=== PATIENT | female | born 1960 | race Caucasian/White ===

== ENCOUNTER 2017-11-05 17:10 | Observation (INO) | payer OTHER ==
[~2017-11-05] VITALS: Ht 154.9 cm; Wt 41.9 kg
[~2017-11-05 17:10] MED LIST: no home medications
--- NOTE | 2017-11-05 17:25 | PHYS DOC ---
Past History Past Medical History: Migraines, Schizophrenia, Other Past Surgical History: No Surgical History Smoking: Non-smoker Alcohol Use: None Drug Use: None Adult General Chief Complaint Chief Complaint: ALTERED MENTAL STATUS HPI HPI She is a pleasant 57-year-old female with a questionable history of schizophrenia who was found wandering downtown today was brought in for an evaluation. She was seen at [facility] earlier this week for a "" mental breakdown according to EMS today she presents because she is hearing voices. She says his voice is been bothering her for more than a year although while she 's been complaining of a headache described as lightening and sharp like behind the right eye with radiation to the ear and scalp. It is intermittent and daily with progression. It is not worst of life or sudden onset in nature is severe and debilitating. Patient is under the care of Dr. Thomas and Dr. Peguero neurology in an attempt to discover a neurologic cause for her symptoms. Patient complains primary of intermittent headaches as described above with no radiation to the back, no photophobia, but she does have some scintillating scotomata and other visual changes. Patient denies any fevers, chills, night sweats, weight loss or recent cough. Patient denies any direct trauma to her head or neck. Patient is not taking any medication to treat her symptoms. Although she has not employed she is living at home with her mother she is clean she does eat regularly. She denies any medications, denies any drug use, denies any alcohol consumption. She is on no medications for psychiatric illnesses. My differential for visual hallucinations includes but is not limited to retinal pathology, vision loss, migraine headache, seizure disorder, dementia, alcohol, alcohol withdrawal, medication withdrawal, narcolepsy, psychiatric illness, metabolic encephalopathy, hypothyroidism, renal failure, systemic infection, central nervous system ischemia, Review of Systems Review of Systems Constitutional: Denies fever or chills [] Eyes: Denies change in visual acuity, redness, or eye pain [] HENT: Denies nasal congestion or sore throat [] Respiratory: Denies cough or shortness of breath [] Cardiovascular: No additional information not addressed in HPI [] GI: Denies abdominal pain, nausea, vomiting, bloody stools or diarrhea [] : Denies dysuria or hematuria she did describe some urinary incontinence of unclear etiology Musculoskeletal: Denies back pain or joint pain [] Integument: Denies rash or skin lesions [] Neurologic: Does complain of a headache not worsened by stat sudden onset this no focal weakness sensory changes or associated loss of vision. She does have some scintillating scotomata and lancing pains over the side of the skull on the right. These are not new not changed hallucinations where she has multiple voices although there are not command hallucinations. She has no suicidal homicidal ideations she does not recognize the voices. Endocrine: Denies polyuria or polydipsia [] All other systems were reviewed and found to be within normal limits, except as documented in this note. Family History Family History Non-contributory Current Medications Current Medications See Nursing for home meds. Allergies Allergies Allergies Coded Allergies Type Severity Reaction Last Updated Verified penicillin Allergy Intermediate Rash 07/14/15 Yes Physical Exam Physical Exam Constitutional: Well developed, well nourished, no acute distress, non-toxic appearance. []He is clean she is well-nourished HENT: Normocephalic, atraumatic, bilateral external ears normal, oropharynx moist, no oral exudates, nose normal. [Patient has no pain pain over the temporal arteries bilaterally there is no palpable cords over the temples.] Eyes: PERRLA, EOMI, conjunctiva normal, no discharge. [] Neck: Normal range of motion, no tenderness, supple, no stridor. [] Cardiovascular:Heart rate regular rhythm, no murmur [] Lungs & Thorax: Bilateral breath sounds clear to auscultation [] Abdomen: Bowel sounds normal, soft, no tenderness, no masses, no pulsatile masses. [] Skin: Warm, dry, no erythema, no rash. [] Back: No tenderness, no CVA tenderness. [] Extremities: No tenderness, no cyanosis, no clubbing, ROM intact, no edema. [] Neurologic: Alert and oriented X 2, normal motor function, normal sensory function, no focal deficits noted. She seems lucid but she has difficulty focusing on tasks. There is no perceived sign that she is noticing that the voices at the time. [] Psychologic: She is somewhat confused but her judgment seems intact she admits that she needs help for this increased confusion. Today she lost and knew she was lost and EMS and local police at help her. EKG EKG [EKG at 0728 the platelet by me showed normal sinus rhythm at rate of 68, Q wave in V1 and V2 and V3, occasional PVC,unchanged from last night] Radiology/Procedures Radiology/Procedures [] Impressions: 1. Mental Status Change 2. Acute Exacerbation of Schizophrenia 3. Elevated Trop. Course & Med Decision Making Course & Med Decision Making Pertinent Labs and Imaging studies reviewed. (See chart for details) []At this point we will determine if there is not an organic cause to this patient to mental status changes, My differential for visual hallucinations includes but is not limited to retinal pathology, vision loss, migraine headache , seizure disorder, dementia, alcohol, alcohol withdrawal, medication withdrawal , narcolepsy, psychiatric illness, metabolic encephalopathy, hypothyroidism, renal failure, systemic infection, central nervous system ischemia, considered upon arrival. Patient is given a clean place to lay down some food. We are waiting for laboratory and CT scan be completed. Patient did mention something during her review of systems that she was having some incontinence at times of unclear etiology she was not driving stress incontinence and it was not associated with back pain or numbness in her lower legs. She denies any UTI symptoms. 2000 [facility]rs. [facility]- want pt. to have Telepsych eval before consideration for [facility] unit. Telepsych advised to have pt. admitted for psych eval and tx. [facility] advised she was not confused enough to go to [facility] unit, but does recommend she be admitted to a psych. hosital. [facility] advised no beds available surrounding hospital - possible bed opening in AM Plan start Geodon, will have pt re-evaluated in AM . and possible transfer to psych unit if one becomes available. 0800: Patient care transferred to ks by Dr. Hodge at 0600. Patient was sleeping without any problem and order for repeat Geodon at 8 AM was cancelled. Patient answering the question appropriately. Patient had elevation of troponin at arrival to ER last night with repeat point of care troponin that was 0.00. I ordered another troponin that reported 0.87. Patient denies chest pain at this time but stated age time she gets anxious she gets chest pain and the last chest pain was yesterday. Patient denies history of hypertension and dyslipidemia and previous cardiac event and family history of coronary artery disease. Patient smokes cigarettes. Plan to admit patient to hospitalist. Dr. Noel consulted at 0748 and accepted admission for telemetry observation. Ann Robison on-call customer contact specialist consulted at [phone]. Dragon Disclaimer Dragon Disclaimer This electronic medical record was generated, in whole or in part, using a voice recognition dictation system. Departure Departure: Impression: Primary Impression: Elevated troponin I level Additional Impression: Acute psychosis Disposition: 09 ADMITTED INPATIENT Admitting Physician: Sheri Noel Condition: IMPROVED Referrals: JESSE LARIOS APRN (PCP) Problem Qualifiers ROBERTA CHOUDHURY MD Nov 05, 2017 17:25 MARITO HODGE MD Nov 05, 2017 18:11 ANN JACKSON MD Nov 06, 2017 07:37
--- NOTE | 2017-11-05 17:40 | RAD ---
CT Head W/O Contrast: History: Altered Mental Status Comparison: none Axial images were obtained without contrast. The motley and white matter appears normal and symmetrical for the patients age. There is no mass effect, extraaxial fluid collections or hydrocephalus. There is no gross bleed. There is no focal loss of motley-white matter distinction to suggest acute ischemia, i.e. stroke. Impression: No acute findings. RS Compliance Statement: One or more of the following individualized dose reduction techniques were utilized for this examination: 1. Automated exposure control 2. Adjustment of the mA and/or kV according to patient size 3. Use of iterative reconstruction technique Electronically signed by: Viral Blanco III, MD (11/05/2017 5:37 PM) [facility]
--- NOTE | 2017-11-05 18:07 | EKG ---
[address] [address] Test Date: 2017-11-05 Test Time: 17:34:06 Pat Name: TATO WYNN Department: Room: Gender: F Montessori Toddler Teacher: MAIRA : 1960 Requested By: ROBERTA CHOUDHURY Order Number: [id number] Reading MD: Joshua Robison MD Measurements Intervals [place] Rate: 62 P: 66 [place]: 156 QRS: 55 QRSD: 102 T: 52 QT: 374 QTc: 382 Interpretive Statements SINUS RHYTHM SUGGESTIVE OF ANTEROSEPTAL INFARCT Electronically Signed On 11-12-2017 14:09:24 RESEARCH PHYSICIAN by Joshua Robison MD
[2017-11-05 18:09] LABS: BASO # 0.1 x10^3/uL (0.0-0.2); BASO % 1 % (0-3); EOS % 0 % (0-3); HEMATOCRIT 38.3 % (36.0-47.0); HEMOGLOBIN 13.1 g/dL (12.0-15.5); LYMPH # 2.1 x10^3/uL (1.0-4.8); LYMPH % 24 % (24-48); MEAN CORPUSCULAR HEMOGLOBIN 30 pg (25-35); MEAN CORPUSCULAR HGB CONC 34 g/dL (31-37); MEAN CORPUSCULAR VOLUME 87 fL (79-100); MONO # 0.7 x10^3/uL (0.0-1.1); MONO % 8 % (0-9); NEUT # 5.8 x10^3uL (1.8-7.7); NEUT % 67 % (31-73); PLATELET COUNT 452 x10^3/uL (140-400); RED BLOOD COUNT 4.39 x10^6/uL (3.50-5.40); RED CELL DISTRIBUTION WIDTH 13.4 % (11.5-14.5); WHITE BLOOD COUNT 8.6 x10^3/uL (4.0-11.0)
[2017-11-05 18:25] LABS: CALCIUM 8.7 mg/dL (8.5-10.1); CREATININE 0.6 mg/dL (0.6-1.0); GFR 103.8; MAGNESIUM 2.2 mg/dL (1.8-2.4); POTASSIUM 3.8 mmol/L (3.5-5.1)
[2017-11-05] MEDS ORDERED: ASPIRIN 325 MG TABLET PO ONE (18:45)
[2017-11-05 19:41] LABS: BARBITURATES NEG (NEG); BENZODIAZEPINES NEG (NEG); CANNABINOIDS NEG (NEG); COCAINE NEG (NEG); METHADONE NEG (NEG); OPIATES NEG (NEG); PHENCYCLIDINE NEG (NEG)
[2017-11-05 19:42] LABS: AMPHETAMINE/METHAMPHETAMINE NEG (NEG)
[2017-11-05 20:01] LABS: BILIRUBIN,URINE NEG (NEG); CLARITY,URINE HAZY; COLOR,URINE YELLOW; GLUCOSE,URINE NEG (NEG)
[2017-11-05 20:02] LABS: AMORPHOUS SEDIMENT,UR PRESENT /HPF; BACTERIA,URINE 0 /HPF (0-FEW); NITRITE,URINE NEG (NEG); SQUAMOUS EPITHELIAL CELL,UR MANY /LPF; UROBILINOGEN,URINE 0.2 mg/dL (0.2 mg/dL)
[2017-11-05] MEDS ORDERED: diphenhydrAMINE HCL 25 MG CAPSULE PO ONE (21:15)
[2017-11-05] MEDS ORDERED: ZIPRASIDONE 20 MG CAPSULE. PO ONE (21:15)
[2017-11-05] MEDS ORDERED: LORazepam 1 MG TABLET PO ONE (21:15)
--- NOTE | 2017-11-05 21:47 | EKG ---
[address] [address] Test Date: 2017-11-05 Test Time: 19:18:08 Pat Name: TATO WYNN Department: Room: Gender: F Agriculture Technician: MAIRA : 1960 Requested By: MARITO LOPEZ Order Number: [id number] Reading MD: Joshua Robison MD Measurements Intervals [place] Rate: 64 P: 56 [place]: 148 QRS: 59 QRSD: 102 T: 58 QT: 398 QTc: 415 Interpretive Statements SINUS RHYTHM POSSIBLE PRIOR ANTEROSEPTAL INFARCT Electronically Signed On 11-12-2017 14:10:27 THERMAL CUTTER HAND by Joshua Robison MD
[2017-11-06] MEDS: ZIPRASIDONE 20 MG CAPSULE. PO SCH ×2 (08:00→12:32)
--- NOTE | 2017-11-06 08:14 | RAD ---
Indication: Smoker, mental status change. Technique: AP upright portable chest radiograph was obtained. No comparison is available. Findings: The lungs are clear. The heart is not enlarged and there is no heart failure. There is no pleural effusion. There is mild dextrocurvature. Impression: No acute thoracic findings.
--- NOTE | 2017-11-06 08:17 | EKG ---
[address] [address] Test Date: 2017-11-06 Test Time: 07:28:45 Pat Name: TATO WYNN Department: Room: Gender: F Director Of Community Education: MAIRA : 1960 Requested By: SON JACKSON Order Number: [id number] Reading MD: Joshua Robison MD Measurements Intervals [place] Rate: 68 P: 63 [place]: 150 QRS: 64 QRSD: 92 T: 64 QT: 404 QTc: 434 Interpretive Statements SINUS RHYTHM VENTRICULAR PREMATURE COMPLEX(ES) POSSIBLE PRIOR ANTEROSEPTAL INFARCT Electronically Signed On 11-12-2017 14:13:48 LIVESTOCK INSPECTOR by Joshua Robison MD
[2017-11-06] MEDS ORDERED: ASPIRIN 81 MG TAB.CHEW PO ONE (08:30)
--- NOTE | 2017-11-06 10:19 | PDOC2 ---
CONSULT Date of Admission DATE: 11/06/17 TIME: : Reason for Consult: elevated trop Problem List Problems Medical Problems: (1) Acute psychosis Status: Acute (2) Elevated troponin I level Status: Acute History of Present Illness Ms Cummings is a 57 year old female who presented to the ED after being found wandering around [facility]. She was apparently hearing voices and unkempt so brought for evaluation for psychiatric placement. On routine evaluation she was noted to have a minimally elevated troponin so consult was called. She is currently a very poor historian and having difficulty concentrating. She is actively "hearing voices". She initially denies any chest discomfort or dyspnea. She then reports intermittent sharp shooting chest pain worse with deep inspiration but is unable to tell me when she experienced this last. She spent most of the encounter relating issues with her husbands MI involvement, prison exposing her son to porn and a 20 year group home sentence for meth distribution. She denies any drug or alcohol use for 2 years. She also reportedly attends AA meetings. She is most concerned with what she describes as "degenerative brain disease" and is requesting a brain MRI. Past Medical History review of available medical records indicate a history of tension type headaches and several years of mental status issues without a concrete diagnosis. Past Surgical History unknown Family History medical records indicate history of cancer Social History 1ppd smoker, history of methamphetamine use, ETOH use (now in AA) and she reports she "dabbled with everything" but denies use of anything in the last 2 years. Current Medications Current Medications Aspirin (Avni Aspirin) 325 mg 1X ONCE PO Last administered on 11/05/17 19: 05; Start 11/05/17 at 18:45; Stop 11/05/17 at 18:47; Status DC Lorazepam (Ativan) 1 mg 1X ONCE PO Last administered on 11/05/17 21:50; Start 11/05/17 at 21:15; Stop 11/05/17 at 21:16; Status DC Ziprasidone (Geodon) 20 mg 1X ONCE PO Last administered on 11/05/17 21:50; Start 11/05/17 at 21:15; Stop 11/05/17 at 21:16; Status DC Diphenhydramine HCl (Benadryl) 25 mg 1X ONCE PO Last administered on 21:50; Start 11/05/17 at 21:15; Stop 11/05/17 at 21:16; Status DC Ziprasidone (Geodon) 20 mg BID PO ; Start 11/06/17 at 00:00 Aspirin (Children'S Aspirin) 324 mg 1X ONCE PO Last administered on t 08:30; Start 11/06/17 at 08:30; Stop 11/06/17 at 08:31; Status DC Active Scripts Active Reported No Known Medications Prior To Admisstion (Info) Each 1 Each MC [no home medications] Allergies: Coded Allergies: penicillin (Verified Allergy, Intermediate, Rash, 07/14/15) Review of System as per HPI General: Alert, Oriented X3, Cooperative, No acute distress Lungs: Clear to auscultation Heart: Regular rate, Normal S1, Normal S2 Abdomen: Normal bowel sounds, Soft Extremities: No cyanosis, No edema, Normal pulses Neuro: Strength at 5/5 X4 ext Psych/Mental Status: Other (A/Ox3, rapid speech, anxious, intermittenlty innattentive and reports hearing voices, intermittently tearful) VITALS Vital Signs Date Time Temp Pulse Resp B/P (MAP) Pulse Ox O2 Delivery O2 Flow Rate FiO2 11/06/17 09:03 63 18 99/66 (77) 100 Room Air 11/05/17 17:10 98.1 Labs Laboratory Tests Test 11/05/17 17:45 11/05/17 19:07 11/05/17 19:11 11/05/17 19:47 White Blood Count 8.6 x10^3/uL (4.0-11.0) Red Blood Count 4.39 x10^6/uL (3.50-5.40) Hemoglobin 13.1 g/dL (12.0-15.5) Hematocrit 38.3 % (36.0-47.0) Mean Corpuscular Volume 87 fL (79-100) Mean Corpuscular Hemoglobin 30 pg (25-35) Mean Corpuscular Hemoglobin Concent 34 g/dL (31-37) Red Cell Distribution Width 13.4 % (11.5-14.5) Platelet Count 452 x10^3/uL (140-400) Neutrophils (%) (Auto) 67 % (31-73) Lymphocytes (%) (Auto) 24 % (24-48) Monocytes (%) (Auto) 8 % (0-9) Eosinophils (%) (Auto) 0 % (0-3) Basophils (%) (Auto) 1 % (0-3) Neutrophils # (Auto) 5.8 x10^3uL (1.8-7.7) Lymphocytes # (Auto) 2.1 x10^3/uL (1.0-4.8) Monocytes # (Auto) 0.7 x10^3/uL (0.0-1.1) Eosinophils # (Auto) 0.0 x10^3/uL (0.0-0.7) Basophils # (Auto) 0.1 x10^3/uL (0.0-0.2) Sodium Level 142 mmol/L (136-145) Potassium Level 3.8 mmol/L (3.5-5.1) Chloride Level 104 mmol/L (98-107) Carbon Dioxide Level 28 mmol/L (21-32) Anion Gap 10 (6-14) Blood Urea Nitrogen 9 mg/dL (7-20) Creatinine 0.6 mg/dL (0.6-1.0) Estimated GFR (Cockcroft-Gault) 103.8 Glucose Level 86 mg/dL (70-99) Calcium Level 8.7 mg/dL (8.5-10.1) Magnesium Level 2.2 mg/dL (1.8-2.4) Ammonia 18 mcmol/L (11-34) Creatine Kinase 156 U/L (26-192) Creatine Kinase MB (Mass) 4.3 ng/mL (0.0-3.6) Creatine Kinase MB Relative Index 2.8 % (0-4) Troponin I Quantitative 0.081 ng/mL (0-0.055) DP-Imr-Q-Type Natriuretic Peptide 83 pg/mL (0-124) Urine Opiates Screen Neg (NEG) Urine Methadone Screen Neg (NEG) Urine Barbiturates Neg (NEG) Urine Phencyclidine Screen Neg (NEG) Urine Amphetamine/Methamphetamine Neg (NEG) Urine Benzodiazepines Screen Neg (NEG) Urine Cocaine Screen Neg (NEG) Urine Cannabinoids Screen Neg (NEG) Urine Ethyl Alcohol Neg (NEG) Urine Collection Type Unknown Urine Color Yellow Urine Clarity Hazy Urine pH 6.5 Urine Specific [place] 1.020 Urine Protein Neg (NEG-TRACE) Urine Glucose (UA) Neg mg/dL (NEG) Urine Ketones (Stick) Neg mg/dL (NEG) Urine Blood Neg (NEG) Urine Nitrite Neg (NEG) Urine Bilirubin Neg (NEG) Urine Urobilinogen Dipstick 0.2 mg/dL (0.2 mg/dL) Urine Leukocyte Esterase Neg (NEG) Urine RBC 1-2 /HPF (0-2) Urine WBC 1-4 /HPF (0-4) Urine Squamous Epithelial Cells Many /LPF Urine Amorphous Sediment Present /HPF Urine Bacteria 0 /HPF (0-FEW) Bedside Troponin I 0.00 ng/ml (<0.08) Test 11/06/17 06:37 Troponin I Quantitative 0.087 ng/mL (0-0.055) Images CXR- Impression: No acute thoracic findings. Assessment/Plan 1. elevated trop - minimal elevation without clear symptoms, no acute changes on EKG. Suggest echo and will start aspirin. check lipids. No beta blockers due to low blood pressure. She is not currently a good candidate for invasive ischemic evaluation due to her acute psych issues. Consider evaluation outpatient once psychiatrically stable. 2. acute psychiatric illness - psych consult / placement. Problems: SHANIA SAUCEDO TIRE ADJUSTER Nov 06, 2017 10:19
[2017-11-06 14:55] VITALS: BP 122/76
--- NOTE | 2017-11-06 15:43 | HP ---
ADMIT DATE: 11/06/2017 HISTORY OF PRESENT ILLNESS: This is a 57-year-old female who was in [facility] yesterday and evidently was staring off into space and not acting right and was brought by the police to the Emergency Room. She had been seen at [facility] early this week for a mental breakdown, but according to her, she is hearing voices, which apparently have been bothering her for more than a year. The patient herself, she states she is seeing flashing lights. She is having problems with her memory and she is under extreme stress. PAST MEDICAL HISTORY: Possibly Schizophrenia. She states she has Asperger'. She is under the care of Dr. Thomas for unknown exactly what. She states she does have headaches. She has posttraumatic stress. MEDICATIONS: None. SOCIAL HISTORY: She lives in an apartment. She does not work. She does smoke a pack per day and has smoked since she was in the sixth grade. The patient just drank on and off since high school, has been attending [employer]. The patient states that her probation has been revoked and she is facing a 20-year sentence, would not give me any further information. 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 She states she worked for the [employer] for 20 years. She did go to college at [employer]. REVIEW OF SYSTEMS: Psych: extreme memory loss, crackling in her brain, sparkles and splashes in her brain , staring off into space, shooting pain, silver flames "stroke like symptoms", easily falling asleep, peeing on herself, heavy breathing, anxiety, traumatic stress. Denies chest pain. FAMILY HISTORY: Positive for stroke and seizures in her father. OBJECTIVE: VITAL SIGNS: Blood pressure 99/66, pulse 63, respirations 18, pulse ox 100% on room air. Height 61 inches, weight 92.31 pounds. GENERAL: A very thin, nervous, 57-year-old, in no acute distress. The patient is well kept. She is well-groomed, albeit very thin habitus. HEENT: Her pupils were equal, round, and reactive to light. Extraocular muscles were intact. Her nose was patent. Her throat was clear. NECK: Supple. LUNGS: Clear. CARDIOVASCULAR: Regular rhythm and rate. ABDOMEN: Soft, nontender. EXTREMITIES: Without edema. MUSCULOSKELETAL: Extreme thin habitus. NEUROLOGIC: Mental status: Flight of ideas, fairly good historian, extremely anxious. ASSESSMENT: 1. Possible psychotic break. 2. Asperger's. 3. Posttraumatic stress. 4. Extreme anxiety. 5. Social issues with the law. 6. Underweight for her height. 7. Tobacco use disorder. 8. Elevated troponin, seen by Cardiology. Troponin has stabilized and EKG is unremarkable. PLAN: Psych evaluation, so far we have not had any luck placing her in spite of Tele/Psych recommending inpatient, we will also get an echocardiogram and have Dr. Harrison see her as well. EZEKIEL LIU DO DR: TRACY/christina JOB#: [id number] / [id number]
--- NOTE | 2017-11-06 15:49 | CARD ---
APPROVED REPORT EXAM: Two-dimensional and M-mode echocardiogram with Doppler and color Doppler. Other Information Quality : ExcellentHR: 87bpm INDICATION Chest Pain 2D DIMENSIONS RVDd2.4 (2.9-3.5cm)Left Atrium(2D)2.8 (1.6-4.0cm) IVSd0.9 (0.7-1.1cm)Aortic Root(2D)2.4 (2.0-3.7cm) LVDd3.6 (3.9-5.9cm)LVOT Diameter1.9 (1.8-2.4cm) PWd0.9 (0.7-1.1cm)LVDs2.3 (2.5-4.0cm) FS (%) 36.6 %SV36.4 ml Mitral Valve MV E Lezrrvmn26.2cm/sMV DECEL [id number] MV A Ftlrmdur25.3cm/sE/A Ratio1.1 Pulmonary Valve PV Peak Wgwyzidi49.9cm/sPV Peak Grad.4mmHg Tricuspid Valve TR P. Uadsogir520bu/sTR Peak Gr.19mmHg Pulmonary Vein S1 Majdtnol67.7cm/sD2 Mglhjhhb56.2cm/s LEFT VENTRICLE The left ventricle is normal size. There is normal left ventricular wall thickness. The left ventricu lar systolic function is normal and the ejection fraction is within normal range. Left ventricular ej ection fraction is 55-60%. There is normal LV segmental wall motion. The left ventricular diastolic f unction and filling is normal for age. RIGHT VENTRICLE The right ventricle is normal size. The right ventricular systolic function is normal. ATRIA The left atrium size is normal. The right atrium size is normal. Interatrial septum is mobile. The in teratrial septum is intact with no evidence for an atrial septal defect or patent foramen ovale as no beverly on 2-D or Doppler imaging. AORTIC VALVE The aortic valve is normal in structure and function. Doppler and Color Flow revealed no significant aortic regurgitation. There is no significant aortic valvular stenosis. There is no aortic valvular v egetation. MITRAL VALVE The mitral valve is normal in structure and function. There is no evidence of mitral valve prolapse. There is no mitral valve stenosis. Doppler and Color-flow revealed trace mitral regurgitation. TRICUSPID VALVE The tricuspid valve is normal in structure and function. Doppler and Color Flow revealed trace tricus pid regurgitation. There is no tricuspid valve prolapse or vegetation. There is no tricuspid valve st enosis. PULMONIC VALVE Pulmonic valve was not visualized. Doppler and Color Flow revealed no pulmonic valvular regurgitation . There is no pulmonic valvular stenosis. GREAT VESSELS The aortic root is normal in size. PERICARDIAL EFFUSION There is no pleural effusion. There is no evidence of significant pericardial effusion. Critical Notification Critical Value: No <Conclusion> The left ventricle is normal size. The left ventricular systolic function is normal and the ejection fraction is within normal range. Left ventricular ejection fraction is 55-60%. There is no significant aortic valvular stenosis. Doppler and Color Flow revealed no significant aortic regurgitation. Doppler and Color-flow revealed trace mitral regurgitation. Doppler and Color Flow revealed trace tricuspid regurgitation. There is no evidence of significant pericardial effusion.
[2017-11-06] MEDS ORDERED: ZIPR20CA2 PO (18:15)
[2017-11-06] MEDS ORDERED: ASPI-630 PO (18:15)
[2017-11-07] MEDS ORDERED: ASPIRIN 81 MG TAB.CHEW PO SCH (08:00)
[2017-11-07] MEDS ORDERED: TRAZ-90 PO (08:39)
[2017-11-07] MEDS ORDERED: DIVA500T17 PO (08:39)
[2017-11-07] MEDS ORDERED: NICO1PAT21 TP (08:40)
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
== END 2017-11-06 17:38 ==
LOC: ER 17:10 → OBSVTOIN 11-06 08:00 → 1 SOUTH 11-06 08:00 → INTOOBSV 11-06 08:00 → OBSVTOIN 11-06 08:26 → INTOOBSV 11-06 08:26
PROVIDERS: ADMIT Family Medicine; ATTEND Family Medicine
DX: F84.5 Asperger's syndrome (principal); F43.10 Post-traumatic stress disorder, unspecified; F41.9 Anxiety disorder, unspecified; F20.9 Schizophrenia, unspecified; G43.909 Migraine, unspecified, not intractable, without status migrainosus; F23 Brief psychotic disorder; F17.210 Nicotine dependence, cigarettes, uncomplicated; R63.6 Underweight; Z82.3 Family history of stroke
CPT/HCPCS: 36415; 70450; 71010; 80048; 80307; 81001; 82140; 82553; 83735; 83880; 84443; 84484; 85025; 86593; 93005; 93306; 99285; G0378; G0379; Q0163; G0479

== ENCOUNTER 2017-11-06 17:47 | Inpatient (IN) | payer OTHER ==
[~2017-11-06] VITALS: Ht 154.9 cm; Wt 41.7 kg
[2017-11-06] MEDS ORDERED: ASPI-630 PO (18:15)
[2017-11-06] MEDS ORDERED: ZIPR20CA2 PO (18:15)
[2017-11-06] MEDS ORDERED: MAG HYDROX/AL HYDROX/SIMETH 30 ML ORAL.SUSP PO PRN (18:30)
[2017-11-06] MEDS ORDERED: ACETAMINOPHEN 325 MG TABLET PO PRN (18:30)
[2017-11-06] MEDS ORDERED: METHYL SALICYLATE/MENTHOL TOPICAL OINTMENT 29GM TUBE. TP PRN (18:30)
[2017-11-06] MEDS ORDERED: MAGNESIUM HYDROXIDE 2,400 MG/30 ML ORAL.SUSP. PO PRN (18:30)
[2017-11-06 18:33] VITALS: BP 126/79
[2017-11-06] MEDS ORDERED: NICOTINE 21MG PATCH. TD SCH (19:00)
[2017-11-06 19:51] LABS: BASO % 1 % (0-3); EOS # 0.1 x10^3/uL (0.0-0.7); EOS % 1 % (0-3); HEMATOCRIT 40.7 % (36.0-47.0); HEMOGLOBIN 13.9 g/dL (12.0-15.5); LYMPH # 2.5 x10^3/uL (1.0-4.8); LYMPH % 37 % (24-48); MEAN CORPUSCULAR HEMOGLOBIN 30 pg (25-35); MEAN CORPUSCULAR HGB CONC 34 g/dL (31-37); MEAN CORPUSCULAR VOLUME 88 fL (79-100); MONO # 0.6 x10^3/uL (0.0-1.1); MONO % 9 % (0-9); NEUT # 3.5 x10^3uL (1.8-7.7); NEUT % 53 % (31-73); PLATELET COUNT 478 x10^3/uL (140-400); RED BLOOD COUNT 4.63 x10^6/uL (3.50-5.40); RED CELL DISTRIBUTION WIDTH 13.9 % (11.5-14.5); WHITE BLOOD COUNT 6.7 x10^3/uL (4.0-11.0)
[2017-11-06 20:02] LABS: ALBUMIN 3.8 g/dL (3.4-5.0); ALBUMIN/GLOBULIN RATIO 1.1 (1.0-1.7); CALCIUM 8.6 mg/dL (8.5-10.1); GFR 57.6; MAGNESIUM 2.1 mg/dL (1.8-2.4); POTASSIUM 3.6 mmol/L (3.5-5.1); TOTAL BILIRUBIN 0.5 mg/dL (0.2-1.0); TOTAL PROTEIN 7.4 g/dL (6.4-8.2)
--- NOTE | 2017-11-06 20:10 | PDOC ---
Exam Note: Levi Note: Please also refer to the separate dictated note~for this date of service dictated separately.~Patient seen individually. Discussed the patient with Nursing staff reviewed the chart.~Reviewed interim history and current functioning. Reviewed vital signs,~Labs/ Radiology~and current medications noted below. Continue current treatment with the changes noted in the dictated addendum note Assessment: Vital Signs: Vital Signs Date Time Temp Pulse Resp B/P (MAP) Pulse Ox O2 Delivery O2 Flow Rate FiO2 11/06/17 18:33 97.7 88 20 126/79 (95) 99 Labs: Laboratory Tests Test 11/06/17 19:20 Sodium Level 141 mmol/L (136-145) Potassium Level 3.6 mmol/L (3.5-5.1) Chloride Level 101 mmol/L (98-107) Carbon Dioxide Level 27 mmol/L (21-32) Anion Gap 13 (6-14) Blood Urea Nitrogen 13 mg/dL (7-20) Creatinine 1.0 mg/dL (0.6-1.0) Estimated GFR (Cockcroft-Gault) 57.6 BUN/Creatinine Ratio 13 (6-20) Glucose Level 115 mg/dL (70-99) H Calcium Level 8.6 mg/dL (8.5-10.1) Magnesium Level 2.1 mg/dL (1.8-2.4) Total Bilirubin 0.5 mg/dL (0.2-1.0) Aspartate Amino Transferase (AST) 13 U/L (15-37) L Alanine Aminotransferase (ALT) 16 U/L (14-59) Alkaline Phosphatase 131 U/L (46-116) H Total Protein 7.4 g/dL (6.4-8.2) Albumin 3.8 g/dL (3.4-5.0) Albumin/Globulin Ratio 1.1 (1.0-1.7) Current Medications: Meds: Current Medications Aspirin (Children'S Aspirin) 81 mg DAILY PO ; Start 11/07/17 at 09:00 Ziprasidone (Geodon) 20 mg BID PO ; Start 11/06/17 at 21:00; Stop 11/06/17 at 21:00; Status DC Acetaminophen (Tylenol) 650 mg PRN Q6HRS PRN PO PAIN / TEMP; Start 11/06/17 at 18:30 Multi-Ingredient Ointment (Analgesic [place]) 1 stiven PRN QID PRN TP MUSCLE PAIN; Start 11/06/17 at 18:30 Al Hydroxide/Mg Hydroxide (Mylanta Plus Xs) 15 ml PRN AFTMEALHC PRN PO DYSPEPSIA; Start 11/06/17 at 18:30 Magnesium Hydroxide (Milk Of Magnesia) 2,400 mg PRN QHS PRN PO CONSTIPATION; Start 11/06/17 at 18:30 Nicotine (Nicoderm Cq 21mg) 1 patch DAILY TD ; Start 11/06/17 at 19:00 Ziprasidone (Geodon) 40 mg BID PO ; Start 11/06/17 at 21:00 Divalproex Sodium (Depakote Er) 500 mg QHS PO ; Start 11/06/17 at 21:00 Trazodone HCl (Desyrel) 100 mg QHS PO ; Start 11/06/17 at 21:00 Trazodone HCl (Desyrel) 100 mg PRN QHS PRN PO INSOMNIA; Start 11/06/17 at 21: 00 Active Scripts Active Reported Geodon (Ziprasidone Hcl) 20 Mg Capsule 20 Mg PO BID Aspirin 81 Mg Tab.chew 81 Mg PO DAILY No Known Medications Prior To Admisstion (Info) Each 1 Each MC [no home medications] I have reviewed the current psychotropics carefully including drug interactions. Risk benefit ratio favors no change other than as noted in my dictated progress note. Diagnosis: Problems: (1) Bipolar 1 disorder, mixed, moderate (2) Anxiety disorder (3) Delusional disorder DONNA BAZZI MD Nov 06, 2017 20:10
[2017-11-06] MEDS: ZIPRASIDONE 40 MG CAPSULE. PO SCH (20:43)
[2017-11-06] MEDS ORDERED: ZIPRASIDONE 20 MG CAPSULE. PO SCH (21:00)
[2017-11-06] MEDS ORDERED: DIVALPROEX ER 500 MG TAB.ER.24H PO SCH (21:00)
[2017-11-06] MEDS ORDERED: traZODone 100 MG TABLET. PO SCH (21:00)
[2017-11-06] MEDS ORDERED: traZODone 100 MG TABLET. PO PRN (21:00)
--- NOTE | 2017-11-06 21:59 | HP ---
ADMIT DATE: 11/06/2017 IDENTIFYING DATA: The patient is a 57-year-old female who initially presented to the [facility] Emergency Room from home as she will wandering around in [place] confused, hallucinating, hearing voices, feeling like he was "lightning bolts" in her head, which caused her to urinate on herself. She was found wandering downtown, extremely psychotic, agitated, manic, grandiose. She had failed outpatient psychiatric interventions resulting in this referral. CHIEF COMPLAINT: "I want my cookie, I want my cookie, I want my cookie." The patient is agitated, running up and down the hallway on the unit. Obsessed about wanting a cookie, extremely agitated. HISTORY OF PRESENT ILLNESS: The patient reportedly has been living at home with her mother. Over the last several days, she has been increasingly agitated, psychotic, unable to sleep, wandering all over town and circumstances that could put her in danger. She has been hyperverbal, manic, grandiose and psychotic. No active suicidal or homicidal ideation, but behaviors noted put her at significant risk of being hurt. After the patient presented to the Emergency Room at [facility], she had a tele psychiatry consult recommending inpatient psychiatric stabilization. Troponin was reportedly elevated. She was admitted to [address] [place] [address] overnight before her transfer to us on 11/06/2017. PAST PSYCHIATRIC HISTORY: Unclear, but positive for psychosis. Past history of methamphetamine abuse and alcohol abuse, but she has been sober for about 2 weeks. MEDICAL HISTORY: Positive for chest pain, tension, headache, ambulates up ad hakeem. CODE STATUS: Full code. ALLERGIES: PENICILLIN. DIET: Regular. UA is negative. MENTAL STATUS EXAM: The patient was seen individually the evening of 01/07/2017. She is anxious, agitated, hyperverbal, grandiose, distractible. Insight, judgment, recent memory is impaired. Language function intact. Attention span short. Mood and affect remains labile. IMPRESSION: Delusional disorder, psychotic disorder, unspecified, probable bipolar 1 disorder, mixed with psychotic features; anxiety disorder, unspecified; past history of alcohol and methamphetamine abuse. Rest of diagnoses as above. PLAN: Admit to Geropsychiatry Unit at [facility]. I will see the patient daily individually from a psychiatric standpoint. Medical followup per Dr. Noel/Dr Cota. The patient is continued on Geodon 20 mg twice a day. We will increase the Geodon to 40 mg twice a day. CT head is unremarkable. We will also consult Dr. Thomas, Neurology. Start trazodone 100 mg at bedtime p.r.n. insomnia, may repeat x 1, and Depakote ER 500 mg p.o. at bedtime for her symptoms, which appear suggestive of bipolar 1 disorder mixed with psychotic features. We will check CBC, CMP, valproic acid level in 3 days. Adjust further as clinically indicated. MAN Irene BAZZI MD DR: LEIGH/christina JOB#: [id number] / [id number]
[2017-11-06 22:47] LABS: BACTERIA,URINE 0 /HPF (0-FEW); BILIRUBIN,URINE NEG (NEG); CLARITY,URINE CLEAR; COLOR,URINE YELLOW; GLUCOSE,URINE NEG (NEG); NITRITE,URINE NEG (NEG); RBC,URINE OCC /HPF (0-2); SQUAMOUS EPITHELIAL CELL,UR MANY /LPF; UROBILINOGEN,URINE 0.2 mg/dL (0.2 mg/dL)
[2017-11-07 06:16] VITALS: BP 95/56
[2017-11-07] MEDS ORDERED: NICOTINE 21MG PATCH. TD SCH ×2 (07:30→09:00)
[2017-11-07] MEDS: ZIPRASIDONE 40 MG CAPSULE. PO SCH (08:27)
[2017-11-07] MEDS ORDERED: TRAZ-90 PO (08:39)
[2017-11-07] MEDS ORDERED: DIVA500T17 PO (08:39)
[2017-11-07] MEDS ORDERED: NICO1PAT21 TP (08:40)
[2017-11-07] MEDS ORDERED: ASPIRIN 81 MG TAB.CHEW PO SCH (09:00)
[2017-11-07 13:54] LABS: THYROID STIM HORMONE (TSH) 1.805 uIU/mL (0.358-3.740)
--- NOTE | 2017-11-07 17:09 | HP ---
ADMIT DATE: 11/07/2017 The patient left AMA prior to me being able to update her history and physical, which was done yesterday when she was a patient on . For any information on her condition, please refer to the H and P from admission. Again, the patient left AMA before she could be seen. EZEKIEL LIU DO DR: TRACY/christina JOB#: [id number] / [id number]
--- NOTE | 2017-11-07 18:48 | PDOC ---
Exam Note: Levi Note: Please also refer to the separate dictated note~for this date of service dictated separately.~Patient seen individually. Discussed the patient with Nursing staff reviewed the chart.~Reviewed interim history and current functioning. Reviewed vital signs,~Labs/ Radiology~and current medications noted below. Continue current treatment with the changes noted in the dictated addendum note Assessment: Vital Signs: Vital Signs Date Time Temp Pulse Resp B/P (MAP) Pulse Ox O2 Delivery O2 Flow Rate FiO2 11/07/17 06:16 98.9 91 16 95/56 (69) 97 I&O Intake and Output 11/07/17 07:00 Intake Total 480 ml Balance 480 ml Intake Oral 480 ml Labs: Laboratory Tests Test 11/06/17 19:20 11/06/17 21:40 White Blood Count 6.7 x10^3/uL (4.0-11.0) Red Blood Count 4.63 x10^6/uL (3.50-5.40) Hemoglobin 13.9 g/dL (12.0-15.5) Hematocrit 40.7 % (36.0-47.0) Mean Corpuscular Volume 88 fL (79-100) Mean Corpuscular Hemoglobin 30 pg (25-35) Mean Corpuscular Hemoglobin Concent 34 g/dL (31-37) Red Cell Distribution Width 13.9 % (11.5-14.5) Platelet Count 478 x10^3/uL (140-400) H Neutrophils (%) (Auto) 53 % (31-73) Lymphocytes (%) (Auto) 37 % (24-48) Monocytes (%) (Auto) 9 % (0-9) Eosinophils (%) (Auto) 1 % (0-3) Basophils (%) (Auto) 1 % (0-3) Neutrophils # (Auto) 3.5 x10^3uL (1.8-7.7) Lymphocytes # (Auto) 2.5 x10^3/uL (1.0-4.8) Monocytes # (Auto) 0.6 x10^3/uL (0.0-1.1) Eosinophils # (Auto) 0.1 x10^3/uL (0.0-0.7) Basophils # (Auto) 0.0 x10^3/uL (0.0-0.2) Sodium Level 141 mmol/L (136-145) Potassium Level 3.6 mmol/L (3.5-5.1) Chloride Level 101 mmol/L (98-107) Carbon Dioxide Level 27 mmol/L (21-32) Anion Gap 13 (6-14) Blood Urea Nitrogen 13 mg/dL (7-20) Creatinine 1.0 mg/dL (0.6-1.0) Estimated GFR (Cockcroft-Gault) 57.6 BUN/Creatinine Ratio 13 (6-20) Glucose Level 115 mg/dL (70-99) H Calcium Level 8.6 mg/dL (8.5-10.1) Magnesium Level 2.1 mg/dL (1.8-2.4) Iron Level 61 ug/dL (50-170) Total Iron Binding Capacity 344 ug/dL (250-450) Iron Saturation 18 % (15-34) Total Bilirubin 0.5 mg/dL (0.2-1.0) Aspartate Amino Transferase (AST) 13 U/L (15-37) L Alanine Aminotransferase (ALT) 16 U/L (14-59) Alkaline Phosphatase 131 U/L (46-116) H Total Protein 7.4 g/dL (6.4-8.2) Albumin 3.8 g/dL (3.4-5.0) Albumin/Globulin Ratio 1.1 (1.0-1.7) Triglycerides Level 241 mg/dL (0-150) H Cholesterol Level 262 mg/dL (0-200) H LDL Cholesterol, Calculated 121 mg/dL (0-100) H VLDL Cholesterol, Calculated 48 mg/dL (0-40) H Non-HDL Cholesterol Calculated 169 mg/dL (0-129) H HDL Cholesterol 93 mg/dL (40-60) H Cholesterol/HDL Ratio 2.0 Vitamin B12 Level 242 pg/mL (247-911) L 25-Hydroxy Vitamin D Total 19.0 ng/mL (30-100) L Thyroid Stimulating Hormone (TSH) 1.805 uIU/mL (0.358-3.740) Urine Collection Type Void Urine Color Yellow Urine Clarity Clear Urine pH 5.0 Urine Specific [place] <=1.005 Urine Protein Neg (NEG-TRACE) Urine Glucose (UA) Neg mg/dL (NEG) Urine Ketones (Stick) Neg mg/dL (NEG) Urine Blood Neg (NEG) Urine Nitrite Neg (NEG) Urine Bilirubin Neg (NEG) Urine Urobilinogen Dipstick 0.2 mg/dL (0.2 mg/dL) Urine Leukocyte Esterase Trace (NEG) Urine RBC Occ /HPF (0-2) Urine WBC 1-4 /HPF (0-4) Urine Squamous Epithelial Cells Many /LPF Urine Bacteria 0 /HPF (0-FEW) Current Medications: Meds: Current Medications Aspirin (Children'S Aspirin) 81 mg DAILY PO Last administered on 11/07/17 08: 27; Start 11/07/17 at 09:00; Stop 11/07/17 at 16:03; Status DC Ziprasidone (Geodon) 20 mg BID PO ; Start 11/06/17 at 21:00; Stop 11/06/17 at 21:00; Status DC Acetaminophen (Tylenol) 650 mg PRN Q6HRS PRN PO PAIN / TEMP; Start 11/06/17 at 18:30; Stop 11/07/17 at 16:03; Status DC Multi-Ingredient Ointment (Analgesic [place]) 1 stiven PRN QID PRN TP MUSCLE PAIN; Start 11/06/17 at 18:30; Stop 11/07/17 at 16:03; Status DC Al Hydroxide/Mg Hydroxide (Mylanta Plus Xs) 15 ml PRN AFTMEALHC PRN PO DYSPEPSIA; Start 11/06/17 at 18:30; Stop 11/07/17 at 16:03; Status DC Magnesium Hydroxide (Milk Of Magnesia) 2,400 mg PRN QHS PRN PO CONSTIPATION; Start 11/06/17 at 18:30; Stop 11/07/17 at 16:03; Status DC Nicotine (Nicoderm Cq 21mg) 1 patch DAILY TD ; Start 11/06/17 at 19:00; Stop 11/06/17 at 22:53; Status DC Ziprasidone (Geodon) 40 mg BID PO Last administered on 11/07/17 08:27; Start 11/06/17 at 21:00; Stop 11/07/17 at 16:03; Status DC Divalproex Sodium (Depakote Er) 500 mg QHS PO Last administered on 11/06/17 20:43; Start 11/06/17 at 21:00; Stop 11/07/17 at 16:03; Status DC Trazodone HCl (Desyrel) 100 mg QHS PO Last administered on 11/06/17 20:43; Start 11/06/17 at 21:00; Stop 11/07/17 at 16:03; Status DC Trazodone HCl (Desyrel) 100 mg PRN QHS PRN PO INSOMNIA Last administered on t 23:38; Start 11/06/17 at 21:00; Stop 11/07/17 at 16:03; Status DC Nicotine (Nicoderm Cq 21mg) 1 patch Q24H TD ; Start 11/07/17 at 07:30; Stop at 07:30; Status DC Nicotine (Nicoderm Cq 21mg) 1 patch DAILY TD ; Start 11/07/17 at 09:00; Stop 11/07/17 at 16:03; Status DC Active Scripts Active Reported NICODERM CQ 21mg (Nicotine) 1 Each Patch.td24 1 Patch TP DAILY Trazodone Hcl 100 Mg Tablet 1 Tab PO QHS Divalproex Sodium Er (Divalproex Sodium) 500 Mg Tab.er.24h 1 Tab PO HS Geodon (Ziprasidone Hcl) 20 Mg Capsule 40 Mg PO BID Aspirin 81 Mg Tab.chew 81 Mg PO DAILY I have reviewed the current psychotropics carefully including drug interactions. Risk benefit ratio favors no change other than as noted in my dictated progress note. Diagnosis: Problems: (1) Delusional disorder (2) Bipolar 1 disorder, mixed, moderate (3) Anxiety disorder DONNA BAZZI MD Nov 07, 2017 18:48
[2017-11-07 20:08] LABS: T3 TOTAL 99 ng/dL (71-180); THYROXINE 6.3 ug/dL (4.5-12.0)
[2017-11-08 01:07] LABS: HEMOGLOBIN A1C 5.3 % (4.8-5.6)
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
== END 2017-11-07 13:30 | disposition left against medical advice (07) | DRG 885 ==
LOC: GEROPSY 17:47
PROVIDERS: ADMIT Psychiatry & Neurology Psychiatry; ATTEND Psychiatry & Neurology Psychiatry
DX: F31.64 Bipolar disorder, current episode mixed, severe, with psychotic features (principal); F10.11 Alcohol abuse, in remission; F41.9 Anxiety disorder, unspecified; F63.9 Impulse disorder, unspecified; G47.00 Insomnia, unspecified; Z53.21 Procedure and treatment not carried out due to patient leaving prior to being seen by health care provider; Z91.83 Wandering in diseases classified elsewhere; Z88.0 Allergy status to penicillin
CPT/HCPCS: 36415; 80053; 80061; 81001; 82306; 82607; 83036; 83540; 83550; 83735; 84436; 84443; 84480; 85025; 86593; 87086; 99407

== ENCOUNTER 2018-05-06 11:05 | Emergency (ER) | payer SELFPAY ==
[~2018-05-06] VITALS: Ht 154.9 cm; Wt 49.4 kg
[~2018-05-06 11:05] MED LIST changes: +ASPI-630 PO; +DIVA500T17 PO; +NICO1PAT21 TP; +TRAZ-90 PO; +ZIPR20CA2 PO
[2018-05-06 11:47] LABS: BASO % 1 % (0-3); EOS % 1 % (0-3); HEMATOCRIT 34.7 % (36.0-47.0); HEMOGLOBIN 11.9 g/dL (12.0-15.5); LYMPH # 1.3 x10^3/uL (1.0-4.8); LYMPH % 21 % (24-48); MEAN CORPUSCULAR HEMOGLOBIN 30 pg (25-35); MEAN CORPUSCULAR HGB CONC 34 g/dL (31-37); MEAN CORPUSCULAR VOLUME 87 fL (79-100); MONO # 0.6 x10^3/uL (0.0-1.1); MONO % 9 % (0-9); NEUT # 4.4 x10^3uL (1.8-7.7); NEUT % 69 % (31-73); PLATELET COUNT 408 x10^3/uL (140-400); RED BLOOD COUNT 3.97 x10^6/uL (3.50-5.40); RED CELL DISTRIBUTION WIDTH 13.3 % (11.5-14.5); WHITE BLOOD COUNT 6.4 x10^3/uL (4.0-11.0)
--- NOTE | 2018-05-06 11:50 | RAD ---
PQRS Compliance Statement: One or more of the following individualized dose reduction techniques were utilized for this examination: 1. Automated exposure control 2. Adjustment of the mA and/or kV according to patient size 3. Use of iterative reconstruction technique CT HEAD WITHOUT CONTRAST History: HEADACHE, DIZZINESS, CONFUSION, AMS Comparison: CT head without contrast, November 05, 2017. Procedure: Axial images are obtained of the head from the skull base through the vertex without IV contrast. Findings: The ventricles and sulci are normal for the patient's age. No mass-effect, midline shift, hemorrhage, extra-axial fluid collection, or obvious acute infarction is identified. Basilar cisterns are patent. Bone windows demonstrate no acute calvarial abnormality. The visualized paranasal sinuses are clear. Mastoid air cells are well aerated. IMPRESSION: No acute intracranial abnormality. Electronically signed by: Isreal Abraham MD (05/06/2018 11:47 AM) [id number]
[2018-05-06 11:51] LABS: POTASSIUM ISTAT 3.4 mmol/L (3.5-5.0)
[2018-05-06 11:52] LABS: HEMOGLOBIN ISTAT 10.5 gm/dL
[2018-05-06 12:02] LABS: ALBUMIN 3.5 g/dL (3.4-5.0); DIRECT BILIRUBIN 0.2 mg/dL (0.0-0.2); TOTAL BILIRUBIN 1.3 mg/dL (0.2-1.0); TOTAL PROTEIN 6.3 g/dL (6.4-8.2)
--- NOTE | 2018-05-06 12:52 | ED.ADGEN ---
Past History Past Medical History: Migraines, Schizophrenia, Other Past Surgical History: No Surgical History Smoking: Non-smoker Alcohol Use: Occasionally Drug Use: None Adult General Chief Complaint Chief Complaint Auditory hallucinations HPI HPI Patient is a 57-year-old female with history of schizophrenia presents with headache, dizziness, nocturia hallucinations. Patient reports that she is hearing experiencing a popping cracking sensation in her head. Patient was at a court today when symptoms began. Denies visual hallucinations. No chest pain shortness of breath. No fever or cough, nausea vomiting or sweats. No SI/HI. Patient has seriously experiences hallucinations during recent hospitalization when patient left against medical office specialist and declined all medications. is currently noncompliant with meds.[] Review of Systems Review of Systems ROS as per HPI All other systems were reviewed and found to be within normal limits, except as documented in this note. Allergies Allergies Allergies Coded Allergies Type Severity Reaction Last Updated Verified penicillin Allergy Intermediate Rash 07/14/15 Yes Physical Exam Physical Exam Constitutional: Well developed, well nourished, no acute distress, non-toxic appearance. [] HENT: Normocephalic, atraumatic, bilateral external ears normal, oropharynx moist, no oral exudates, nose normal. [] Eyes: PERRLA, EOMI, conjunctiva normal, no discharge. [] Neck: Normal range of motion, no tenderness, supple, no stridor. [] Cardiovascular:Heart rate regular rhythm, no murmur [] Lungs & Thorax: Bilateral breath sounds clear to auscultation [] Abdomen: Bowel sounds normal, soft, no tenderness. [] Skin: Warm, dry. [] Back: No tenderness. [] Extremities: No tenderness. [] Neurologic: Alert and oriented X2, normal motor function, normal sensory function, no focal deficits noted. [] Psychologic: Affect normal, currently experiencing auditory hallucinations, no HI or SI. [] Current Patient Data Vital Signs Vital Signs Date Time Temp Pulse Resp B/P (MAP) Pulse Ox O2 Delivery O2 Flow Rate FiO2 05/06/18 11:17 98.0 78 18 98 Room Air Lab Results Laboratory Tests Test 05/06/18 11:26 White Blood Count 6.4 x10^3/uL (4.0-11.0) Red Blood Count 3.97 x10^6/uL (3.50-5.40) Hemoglobin 11.9 g/dL (12.0-15.5) L POC Hemoglobin 10.5 gm/dL Hematocrit 34.7 % (36.0-47.0) L POC Hematocrit 31 % Mean Corpuscular Volume 87 fL (79-100) Mean Corpuscular Hemoglobin 30 pg (25-35) Mean Corpuscular Hemoglobin Concent 34 g/dL (31-37) Red Cell Distribution Width 13.3 % (11.5-14.5) Platelet Count 408 x10^3/uL (140-400) H Neutrophils (%) (Auto) 69 % (31-73) Lymphocytes (%) (Auto) 21 % (24-48) L Monocytes (%) (Auto) 9 % (0-9) Eosinophils (%) (Auto) 1 % (0-3) Basophils (%) (Auto) 1 % (0-3) Neutrophils # (Auto) 4.4 x10^3uL (1.8-7.7) Lymphocytes # (Auto) 1.3 x10^3/uL (1.0-4.8) Monocytes # (Auto) 0.6 x10^3/uL (0.0-1.1) Eosinophils # (Auto) 0.0 x10^3/uL (0.0-0.7) Basophils # (Auto) 0.0 x10^3/uL (0.0-0.2) POC Sodium 140 mmol/L (135-145) POC Potassium 3.4 mmol/L (3.5-5.0) L POC Chloride 101 mmol/L (98-110) POC Total CO2 30 mmol/L (23-32) Anion Gap 13 mmol/L (6-14) POC Blood Urea Nitrogen 12 mg/dL (8-26) POC Creatinine 0.6 mg/dL (0.5-1.4) Glucose Level 91 mg/dL (60-99) POC Ionized Calcium ([place]) 1.13 mmol/L (1.13-1.32) Total Bilirubin 1.3 mg/dL (0.2-1.0) H Direct Bilirubin 0.2 mg/dL (0.0-0.2) Aspartate Amino Transferase (AST) 24 U/L (15-37) Alanine Aminotransferase (ALT) 18 U/L (14-59) Alkaline Phosphatase 136 U/L (46-116) H Total Protein 6.3 g/dL (6.4-8.2) L Albumin 3.5 g/dL (3.4-5.0) Ethyl Alcohol Level < 10 mg/dL (0-10) EKG EKG [] Radiology/Procedures Radiology/Procedures [CT head: No acute disease per radiology report] Course & Med Decision Making Course & Med Decision Making Pertinent Labs and Imaging studies reviewed. (See chart for details) [She with chronic psychosis. Does not represent an intermittent threat to herself. Medical evaluation unremarkable.Recommend outpatient follow-up with adult protective caseworker/family guidance Center.] Final Impression Final Impression [1. Headache 2. Auditory hallucinations] Dragon Disclaimer Dragon Disclaimer This electronic medical record was generated, in whole or in part, using a voice recognition dictation system. ALONA YUSUF DO May 06, 2018 12:52
[2018-05-06 13:09] VITALS: BP 109/75
== END 2018-05-06 13:12 | disposition home or self-care (01) ==
LOC: ER 11:05
DX: R51 Headache (principal); R44.0 Auditory hallucinations; F20.9 Schizophrenia, unspecified; G43.909 Migraine, unspecified, not intractable, without status migrainosus; Z88.0 Allergy status to penicillin
CPT/HCPCS: 36415; 70450; 80047; 80076; 85025; 99285; G0480